=== PATIENT | female | born 1980 | race Caucasian/White ===

== ENCOUNTER 2017-02-26 13:29 | Emergency (ER) | payer BC, MEDICAID, OTHER ==
[2017-02-26 13:38] VITALS: RESP 20; TEMP 98.3; O2SAT 100
[2017-02-26] MEDS ORDERED: DiphenhydrAMINE 50 mg/ml Inj IVP STA (14:10)
[2017-02-26] MEDS ORDERED: DiphenhydrAMINE 50 mg/ml Inj ONE (14:35)
[2017-02-26 14:47] LABS: BASO % 0.6 % (0.0-2.0); EOS % 0.7 % (0.0-4.0); HEMATOCRIT 34.9 % (34.0-47.0); LYMPH # 2.4 K/uL (1.0-4.3); LYMPH % 31.4 % (20.0-40.0); MEAN CELL VOLUME 85.8 fL (81.0-99.0); MEAN CORPUSCULAR HEMOGLOBIN 29.3 pg (27.0-31.0); MEAN CORPUSCULAR HGB CONC 34.2 g/dL (33.0-37.0); MEAN PLATELET VOLUME 8.3 fL (7.2-11.7); MONO # 0.5 K/uL (0.0-0.8); MONO % 6.7 % (0.0-10.0); RED CELL DISTRIBUTION WIDTH 13.4 % (11.5-14.5); WHITE BLOOD COUNT 7.5 K/uL (4.8-10.8)
[2017-02-26 15:05] LABS: CHLORIDE 103 mmol/L (98-107); SODIUM 136 mmol/L (132-148)
[2017-02-26 15:06] LABS: POTASSIUM 3.8 mmol/L (3.6-5.2)
[2017-02-26 15:08] LABS: ALB/GLOB RATIO 1.1 (1.0-2.1); ALKALINE PHOSPHATASE 30 U/L (38-126); ALT/SGPT 21 U/L (9-52); AST/SGOT 16 U/L (14-36); BILIRUBIN,TOTAL 0.2 mg/dL (0.2-1.3); BLOOD UREA NITROGEN 9 mg/dL (7-17); CARBON DIOXIDE 22 mmol/L (22-30); GFR AFRICAN-AMERICAN > 60; TOTAL PROTEIN 6.6 g/dL (6.3-8.3)
[2017-02-26 15:09] LABS: CALCIUM 8.7 mg/dl (8.6-10.4); GLUCOSE,RANDOM 79 mg/dL (65-105)
[2017-02-26] MEDS ORDERED: Sodium Chloride 0.9% 500 ML IV ONE (15:10)
--- NOTE | 2017-02-26 15:55 | C.PDOC ---
History Of Present Illness 36 y/o female presents to ED with c/o headache associated with nausea and feeling "weak" for 2 days. Patient reports LMP was in November, and notes she just found house she is . Denies fever, chills, cough, chest pain, SOB, abdominal pain, vomiting, vaginal bleeding, urinary symptoms, or other complaints. Time Seen by Provider: 02/26/17 13:45 Chief Complaint (Nursing): Headache History Per: Patient History/Exam Limitations: no limitations Onset/Duration Of Symptoms: Days (2) Current Symptoms Are (Timing): Still Present Quality: "Pain" Preceeding Symptoms: None Associated Symptoms: Nausea. denies: Vomiting, Extremity Weakness Recent travel outside of the [place]: No Past Medical History Reviewed: Historical Data, Nursing Documentation, Vital Signs Vital Signs: Last Vital Signs Temp 98.3 F 02/26/17 16:06 Pulse 70 02/26/17 16:06 Resp 20 02/26/17 16:06 BP 115/78 02/26/17 16:06 Pulse Ox 100 02/26/17 20:02 - Medical History PMH: No Chronic Diseases - [facility] Procedures ARTIF RUPT MEMBRANES NEC (11/14/13) MANUAL ASSIST DELIV NEC (11/14/13) Family History: States: Unknown Family Hx - Social History Hx Alcohol Use: No Hx Substance Use: No - Immunization History Hx Tetanus Toxoid Vaccination: Yes Hx Influenza Vaccination: No Hx Pneumococcal Vaccination: No Review Of Systems Except As Marked, All Systems Reviewed And Found Negative. Constitutional: Positive for: Weakness. Negative for: Fever, Chills Respiratory: Negative for: Cough, Shortness of Breath Gastrointestinal: Positive for: Nausea. Negative for: Vomiting, Abdominal Pain Genitourinary: Negative for: Dysuria, Hematuria, Vaginal Bleeding, Pelvic Pain Skin: Negative for: Rash Neurological: Positive for: Headache. Negative for: Dizziness Physical Exam - Physical Exam Appears: Non-toxic, No Acute Distress Skin: Normal Color, Warm, Dry, No Rash Head: Atraumatic, Normacephalic Eye(s): bilateral: Normal Inspection, PERRL, EOMI Ear(s): Bilateral: Normal Nose: Normal Oral Mucosa: Moist Throat: Normal, No Erythema, No Exudate Neck: Normal ROM, No Paracervical Tenderness, Supple Chest: Symmetrical Cardiovascular: Rhythm Regular, No Friction Rub, No Murmur Respiratory: Normal Breath Sounds, No Rales, No Rhonchi, No Wheezing Gastrointestinal/Abdominal: Soft, No Tenderness, No Distention, No Guarding, No Rebound Back: Normal Inspection, No CVA Tenderness Extremity: Normal ROM, Capillary Refill (< 2 sec. ), No Swelling Neurological/Psych: Oriented x3, Normal Speech, Normal Cognition, Normal Motor Gait: Steady ED Course And Treatment - Laboratory Results Result Diagrams: 02/26/17 14:43 02/26/17 14:43 O2 Sat by Pulse Oximetry: 100 (RA) Pulse Ox Interpretation: Normal Progress Note: Treated with Benadryl, Reglan, Tylenol, and IVFs. Labs ordered and reviewed. On reassessment, patient is resting comfortably, and is in no acute distress. On re-exam, patient reports improvement of symptoms. Lungs are CTA, heart is RRR, abdomen is soft, non-tender and tolerating PO well. Ambulatory in the ED with steady gait. Follow up with the medical doctor within 1-2 days. Return if worsened. Medical Decision Making Medical Decision Making: On re-exam, the patient reports improvement of symptoms. Lungs are CTA, heart is RRR, abdomen is soft, non-tender and patient is tolerating PO well. Follow up with the medical doctor within 1-2 days. Return if worsened. Disposition - Disposition Referrals: at [facility] [Outside] Disposition: HOME/ ROUTINE Disposition Time: 15:53 Condition: GOOD Additional Instructions: Follow up with the medical doctor within 1-2 days. Return if worsened. Prescriptions: Metoclopramide [Reglan] 1 tab PO TID PRN #25 tab PRN Reason: Nausea/Vomiting Acetaminophen [Tylenol] 325 mg PO Q6 PRN #30 tab PRN Reason: Pain, Mild (1-3) Instructions: Acute Headache (DC) Forms: Work Excuse - Clinical Impression Clinical Impression: Headache - PA / COMPANY SECRETARY / Resident Statement MD/DO has reviewed & agrees with the documentation as recorded. - Scribe Statement The provider has reviewed the documentation as recorded by the Mimi Franklin Provider Scribe Attestation: All medical record entries made by the Scribe were at my direction and personally dictated by me. I have reviewed the chart and agree that the record accurately reflects my personal performance of the history, physical exam, medical decision making, and the department course for this patient. I have also personally directed, reviewed, and agree with the discharge instructions and disposition.
[2017-02-26 16:07] VITALS: BP 115/78; PULSE 70
== END 2017-02-26 16:06 | disposition home or self-care (01) ==
LOC: C.ER 13:29
DX: R51 Headache (principal)
CPT/HCPCS: 80053; 85025; 96374; 96375; 99284; J1200; J2765; J7040

== ENCOUNTER 2017-07-24 10:08 | Emergency (ER) | payer MEDICAID ==
[2017-07-24 10:44] LABS: RBC URINE 1 /hpf (0-3); URINE BILIRUBIN NEGATIVE (NEGATIVE); URINE BLOOD NEGATIVE (NEGATIVE); URINE COLOR Yellow (YELLOW); URINE GLUCOSE (UA) NORMAL (Normal); URINE KETONE TRACE mg/dL (NEGATIVE); URINE LEUKOCYTE ESTERASE NEG Leu/uL (Negative); URINE PROTEIN NEGATIVE (NEGATIVE); URINE UROBILINOGEN NORMAL mg/dL (0.2-1.0); WBC URINE < 1 /hpf (0-5)
--- NOTE | 2017-07-24 11:14 | OBHP ---
Datetime: 07/24/2017 11:11 IP Adm Impression: , intrauterine IP Chief Complaint Other: cramping Admit Comment, IP Provider: at 28weeks came with ctramping from the mornig. pt was at work and did not eeat anything, no vb, lof,+fm. obhx 3 x , 2 x ta pmh den med pnv all nkda psh de soch de ve closed a/p at 28+weeks ctxs r/o uti ua npo/ivf cont phyllis and ef cont close observation Pelvic Type - PN: Adequate Extremities - PN: Normal Abdomen - PN: Normal Back - PN: Normal Breast - PN: Normal Lungs - PN: Normal Heart - PN: Normal Thyroid - PN: Normal Neurologic - PN: Normal HEENT - PN: Normal General - PN: Normal FHR - Baseline A Provider: 130 Contraction Comments Provider: occ Comments, ACOG Physical Exam: gravid,non tender ext no edema,no calf ten ve closed IP Hx Assessment: The History has been Reviewed and is Current Vital Signs Provider: Reviewed; Within Normal Limits NICHD Variability Prov Fetus A: Moderate 6-25bpm NICHD Accel Fetus A IP Provider: 10X10 FHR Category Provider Fetus A: Category I Dilatation, Provider: 0 Effacement, Provider: 0 Station, Provider: -3 Genitourinary Exam: Normal DTRs - PN: Normal
[2017-07-24] MEDS ORDERED: Dextrose 5%/Lactated Ringer's 1,000 ML IV SCH (11:15)
--- NOTE | 2017-07-24 12:53 | OBHP ---
Datetime: 07/24/2017 12:49 Admit Comment, IP Provider: pt was examined at bed side. feels better. no pain. ve closed uA NEG S/P IV F PLAN DC home ptl given po hyration f/u in clinic in 2- dys FHR - Baseline A Provider: 130 Contraction Comments Provider: none Vital Signs Provider: Reviewed; Within Normal Limits NICHD Variability Prov Fetus A: Moderate 6-25bpm NICHD Accel Fetus A IP Provider: 15X15 FHR Category Provider Fetus A: Category I Dilatation, Provider: 0 Effacement, Provider: 0 Station, Provider: -3
--- NOTE | 2017-07-24 12:53 | OBDCSUM ---
Datetime: 07/24/2017 12:50 Discharged to, Provider: Home Follow up at, Provider: 3-4 days Follow up in weeks, Provider: clinic Discharge Comment, Provider: DC home ptl given po hyration f/u in clinic in 2- dys Discharge Diagnosis Prov Other: 28wee nst ctxs
[2017-07-24 17:25] VITALS: BP 124/78; PULSE 70
== END 2017-07-24 13:15 | disposition home or self-care (01) ==
LOC: C.EROB 10:08
DX: O47.03 False labor before 37 completed weeks of gestation, third trimester (principal); Z3A.28 28 weeks gestation of pregnancy
CPT/HCPCS: 81001; 99283; J7120

== ENCOUNTER 2018-10-18 08:02 | Emergency (ER) | payer MEDICAID ==
[2018-10-18 08:09] VITALS: BMI 32.8
[2018-10-18] MEDS ORDERED: Sodium Chloride 0.9% 1,000 ML IV ONE (08:27)
[2018-10-18] MEDS ORDERED: Sodium Chloride 0.9% 1,000 ML ONE (08:46)
[2018-10-18 08:52] LABS: HCG,QUALITATIVE URINE POSITIVE (NEGATIVE)
[2018-10-18 08:55] LABS: BASO # 0.1 K/uL (0.0-0.2); EOS # 0.1 K/uL (0.0-0.7); EOS % 1.3 % (0.0-4.0); HEMOGLOBIN 13.1 g/dL (11.0-16.0); LYMPH % 35.3 % (20.0-40.0); MEAN CORPUSCULAR HEMOGLOBIN 29.4 pg (27.0-31.0); MEAN CORPUSCULAR HGB CONC 34.4 g/dL (33.0-37.0); MEAN PLATELET VOLUME 8.9 fL (7.2-11.7); MONO # 0.4 K/uL (0.0-0.8); MONO % 7.3 % (0.0-10.0); NEUT # 3.1 K/uL (1.8-7.0); NEUT % 55.1 % (50.0-75.0); RBC 4.45 Mil/uL (3.80-5.20); RED CELL DISTRIBUTION WIDTH 13.5 % (11.5-14.5); WHITE BLOOD COUNT 5.5 K/uL (4.8-10.8)
[2018-10-18 08:59] LABS: MEAN CELL VOLUME 85.5 fL (81.0-99.0)
[2018-10-18 09:02] LABS: ALB/GLOB RATIO 1.2 (1.0-2.1); ALBUMIN 4.1 g/dL (3.5-5.0); ALT/SGPT 20 U/L (9-52); AST/SGOT 24 U/L (14-36); BLOOD UREA NITROGEN 9 mg/dL (7-17); CALCIUM 8.9 mg/dl (8.6-10.4); GFR NON-AFRICAN AMERICAN > 60
[2018-10-18 09:03] LABS: SQUAMOUS EPITHIAL 2 /hpf (0-5); URINE BACTERIA RARE (<OCC); URINE BILIRUBIN NEGATIVE (NEGATIVE); URINE BLOOD 1+ (NEGATIVE); URINE CLARITY Clear (Clear); URINE COLOR Yellow (YELLOW); URINE GLUCOSE (UA) NORMAL (Normal); URINE LEUKOCYTE ESTERASE NEG Leu/uL (Negative); URINE PROTEIN NEGATIVE (NEGATIVE); URINE UROBILINOGEN NORMAL mg/dL (0.2-1.0)
--- NOTE | 2018-10-18 10:59 | C.PDOC ---
History Of Present Illness 38-year-old Ab2 female presents to the ED complaining of vaginal spotting that began this morning. Patient reports she is 9.5 weeks by date. LMP was 08/09/18. No prior hx of ectopic . She denies any pain, fever, chills, vaginal discharge, nausea, or vomiting. Time Seen by Provider: 10/18/18 08:21 Chief Complaint (Nursing): Female Genitourinary History Per: Patient History/Exam Limitations: no limitations Onset/Duration Of Symptoms: Hrs Current Symptoms Are (Timing): Still Present Abnormal Vaginal Bleeding: Yes Last Menstral Period: 08/09/2018 : 7 Para: 4 Miscarriage: 2 Past Medical History Reviewed: Historical Data, Nursing Documentation, Vital Signs Vital Signs: Last Vital Signs Temp 98.6 F 10/18/18 08:09 Pulse 83 10/18/18 08:09 Resp 17 10/18/18 08:09 BP 128/90 10/18/18 08:09 Pulse Ox 99 10/18/18 08:09 - Medical History PMH: Denies: Depression, Diabetes, HTN Surgical History: No Surg Hx - [facility] Procedures ARTIF RUPT MEMBRANES NEC (11/14/13) DELIVERY OF PRODUCTS OF CONCEPTION, EXTERNAL APPROACH (09/26/17) MANUAL ASSIST DELIV NEC (11/14/13) REPAIR PERINEUM SKIN, EXTERNAL APPROACH (09/26/17) Family History: States: Unknown Family Hx - Social History Hx Tobacco Use: No Hx Alcohol Use: No Hx Substance Use: No - Immunization History Hx Tetanus Toxoid Vaccination: Yes Hx Influenza Vaccination: No Hx Pneumococcal Vaccination: No Review Of Systems Except As Marked, All Systems Reviewed And Found Negative. Constitutional: Negative for: Fever, Chills Gastrointestinal: Negative for: Nausea, Vomiting, Abdominal Pain, Diarrhea Genitourinary: Positive for: Vaginal Bleeding. Negative for: Dysuria, Frequency, Vaginal Discharge Physical Exam - Physical Exam Appears: Non-toxic, No Acute Distress, Other (Obese black female) Skin: Warm, Dry Head: Atraumatic, Normacephalic Eye(s): bilateral: Normal Inspection Oral Mucosa: Moist Neck: Supple Chest: Symmetrical Cardiovascular: Rhythm Regular, No Murmur Respiratory: Normal Breath Sounds, No Accessory Muscle Use, No Wheezing Gastrointestinal/Abdominal: Soft, No Tenderness, No Distention, No Guarding Extremity: Bilateral: Normal Color And Temperature, Normal ROM Neurological/Psych: Oriented x3, Normal Speech ED Course And Treatment - Laboratory Results Result Diagrams: 10/18/18 08:44 10/18/18 08:44 Lab Interpretation: Normal (quant 14,448, B+) O2 Sat by Pulse Oximetry: 99 (RA) Pulse Ox Interpretation: Normal - CT Scan/US OB/ US Other Rad Studies (CT/US): Read By Radiologist, Radiology Report Reviewed CT/US Interpretation: IMPRESSION: Intrauterine gestational sac without identifiable pole or yolk sac. Sac diameter equivalent to 6 weeks 6 days. This is concerning for nonviable . However, followup with transvaginal pelvic ultrasound examination and serial beta HCG measurement is advised. Small subchorionic hemorrhages. Probable 3.3 cm left ovarian corpus luteum cyst. Medical Decision Making Medical Decision Making: Initial Plan: --Beta-HCG --CMP --CBC --UA --Urine HCG --Blood type/screen --IV fluids x 1 bolus --Pending transvag/pelvic [place] [address]. Blood work otherwise unremarkable. early preg, no ectopic, B+, correlating QHCG but apparent non-viable IUP Disposition Doctor Will See Patient In The: Office Counseled Patient/Family Regarding: Studies Performed, Diagnosis - Disposition Referrals: [facility] [Outside] [facility] [Outside] [facility] [Outside] Laureano Solorio, AIDA, DRUG ENFORCEMENT ADMINISTRATION AGENT [Advanced Practice Nurse] - Disposition: HOME/ ROUTINE Disposition Time: 12:49 Condition: GOOD Additional Instructions: Ultrasound results given follow-up as outpatient with OBGYN Continue daily vitamin Instructions: Threatened Miscarriage Forms: [facility] ([place]yan) - Clinical Impression Clinical Impression: Vaginal spotting - Scribe Statement The provider has reviewed the documentation as recorded by the Ximenaibgomez [place] Provider Attestation: All medical record entries made by the Ximenaibe were at my direction and personally dictated by me. I have reviewed the chart and agree that the record accurately reflects my personal performance of the history, physical exam, medical decision making, and the department course for this patient. I have also personally directed, reviewed, and agree with the discharge instructions and disposition.
[2018-10-18 11:42] VITALS: RESP 18
--- NOTE | 2018-10-18 12:47 | US ---
Date of service: 10/18/2018 PROCEDURE: OB Pelvic Ultrasound HISTORY: 9 wks, spotting LMP: 08/09/2018 COMPARISON: None available. FINDINGS: UTERUS: Gestational sac: 23 mm. Equivalent to 6 weeks 6 days No pole identified. No yolk sac identified. No cardiac activity identified age (Ultrasound estimated): 6 weeks 6 days Valeria-gestational hemorrhage: 2 small perigestational hemorrhages are identified, 6 x 8 mm and 1.1 x 1.7 cm. Date of delivery (Ultrasound estimated) : 06/07/2019 Uterus measures 12.9 x 7.5 x 8.8 cm. Normal in size and appearance. CERVIX: Measures 4.3 cm. Long and closed. No cervical abnormality seen. RIGHT OVARY: Measures 2.8 x 2.0 x 2.5 cm. No mass lesion. Normal flow. LEFT OVARY: Measures 5.0 x 3.0 x 4.9 cm. No solid mass. Normal flow. Probable corpus luteum cyst, 3.3 x 2.4 x 2.7 cm. FREE FLUID: None. OTHER FINDINGS: None. IMPRESSION: Intrauterine gestational sac without identifiable pole or yolk sac. Sac diameter equivalent to 6 weeks 6 days. This is concerning for nonviable . However, followup with transvaginal pelvic ultrasound examination and serial beta HCG measurement is advised. Small subchorionic hemorrhages. Probable 3.3 cm left ovarian corpus luteum cyst.
[2018-10-18 13:02] VITALS: BP 128/86; PULSE 69; TEMP 98.3
[2018-10-18 13:14] VITALS: O2SAT 99
== END 2018-10-18 13:02 | disposition home or self-care (01) ==
LOC: C.ER 08:02
DX: O26.851 Spotting complicating pregnancy, first trimester (principal); Z3A.01 Less than 8 weeks gestation of pregnancy
CPT/HCPCS: 76805; 76817; 80053; 81001; 84702; 84703; 85025; 86850; 86900; 96360; 99285; J7030